=== PATIENT | female | born 1970 | race Caucasian/White ===

== ENCOUNTER 2024-11-14 14:46 | Outpatient (REF) | payer BC, SELFPAY ==
--- NOTE | ~2024-11-14 | XR_ITS ---
EXAMINATION: XR FOOT 3 OR MORE VIEWS LEFT HISTORY: left foot pain COMPARISON: There are no prior studies available for comparison. FINDINGS: Four views of the left foot are submitted. Osseous mineralization is normal. There is no fracture or dislocation. The joint spaces are preserved. The soft tissues are unremarkable. XR/XR foot LT min 3V IMPRESSION: Unremarkable examination of the left foot. Electronically signed by: Jorge A Milian MD 11/14/2024 03:37 PM EDT
--- OUTSIDE RECORDS SUMMARY | 2024-11-14 15:31 | XMS_ITS ---
Author Organization Jorge A Delaney III, MD Address [address] [place] [address] Care Team Providers Care Data Entry Email Processor Name Role Phone Jorge A Delaney [facility] [phone] Allergies Allergen (clinical drug ingredient) Drug/Non Drug Allergy documented on EMR Reaction Allergy Type Onset Date Status codeine Codeine Unknown Drug Allergy Active calcitonin Calcitonin Unknown Drug Allergy Activ e REASON FOR VISIT New Patient Medications Medication SIG (Take, Route, Frequency, Duration) Notes Start Date End Date Status Albuterol Sulfate HFA 108 (90 Base) MCG/ACT two puffs four times a day for wheezing Inhalation four times a day for 30 days Active EPINEPHrine 0.3 MG/0.3ML as directed Injection 01/2025 Active Estradiol 0.1 MG/GM USE 1 GRAM VAGINALLY DAILY BEFORE BED FOR 2 WEEKS THEN USE 3 TIMES A WEEK Vaginal Active Budesonide-Formoterol Fumarate 80-4.5 MCG/ACT two puffs twice a day Inhalation two puffs twice a day for 30 days 11/13/2024 11/08/2025 Active AeroChamber Holding Chamber - as directed 11/13/2024 Active Clobetasol Propionate 0.05 % APPLY A THIN FILM WEEKLY TO AFFECTED AREA WEEKLY. APPLY DAILY X 7-10 DAYS FOR A FLARE. External Active Doxycycline Hyclate 100 MG TAKE 1 TABLET BY MOUTH EVERY DAY Oral Active Exirsivf-Opmtzvpbx-Evjypte h 3.5-47951-8.1 APPLY INTO BOTH EYES AT BEDTIME Ophthalmic for 30 Days Active Social History Tobacco Use: Social History Observation Description Date Details (start date - stop date) Never Smoker NA - NA Tobacco Control (Standard) Question Answer Notes Tobacco use: Nonsmoker Additional Findings: Tobacco non-user Aggressive nonsmoker AUDIT-C (Standard) Question Answer Notes Did you have a drink containing alcohol in the p ast year? No Points 0 Interpretation Negative Problems Problem Type SNOMED Code ICD Code Onset Dates Problem Status W/U Status Risk Notes Problem 064302583 Asthma, unspecified asthma severity, unspecified whether complicated, unspecified whether persistent (J45.909) Active confirmed Problem 05221019 Sleep apnea, unspecified type (G47.30) Active confirmed Vital Signs Temperature 98.3 degrees Fahrenheit 11/14/19 25 Blood pressure systolic 138 mm Hg 11/14/19 25 Blood pressure diastolic 76 mm Hg 025 Heart Rate 65 /min 11/13/2024 Height 61.75 in 11/13/2024 Weight 149 lbs 11/13/2024 BMI 27.47 kg/m2 11/13/2024 Encounters Encounter Location Date Provider Diagnosis Jorge A Delaney III, MD [address] [place] [address] [place] [address] 11/13/2024 Jorge A Delaney Asthma, unspecified asthma severity, unspecified whether complicated, unspecified whether persistent J45.909 and Sleep apnea, unspecified type G47.30 Assessments Encounter Date Diagnosis (ICD Code) Assessment Notes Treat ment Notes Treatment Clinical Notes 11/13/2024 Asthma, unspecified asthma severity, unspecified whether complicated, unspecified whether persistent (ICD-10 - J45.909) 11/13/2024 Sleep apnea, unspecified type (ICD-10 - G47.30) Plan Of Treatment Medication Medication Name Sig Start Date Stop Date Notes Albuterol Sulfate HFA 108 (9 0 Base) MCG/ACT two puffs four times a day for wheezing Inhalation four times a day for 30 days EPINEPHrine 0.3 MG/0.3ML as directed Injection 11/13/2024 Estradiol 0.1 MG/GM USE 1 GRAM VAGINALLY DAILY BEFORE BED FOR 2 WEEKS THEN USE 3 TIMES A WEEK Vaginal Budesonide-Formoterol Fumarate 80-4.5 MCG/ACT two puffs twice a day Inhalation two puffs twice a day for 30 days 11/13/2024 11/08/2025 AeroChamber Holding Chamber - as directed 11/13/2024 Clobetasol Propionate 0.05 % APPLY A THI N FILM WEEKLY TO AFFECTED AREA WEEKLY. APPLY DAILY X 7-10 DAYS FOR A FLARE. External Doxycycline Hyclate 100 MG TAKE 1 TABLET BY MOUTH EVERY DAY Oral Pending Test Test Name Order Date PROFILE, FASTING (COMPREHENSIVE METABOLI C) 11/13/2024 CBC w DIFF 11/13/2024 Lipid Panel 11/13/2024 Next Appt Details Follow Up: 3 Weeks, Reason: TV review labs Provider Name:Jorg eA Delaney, 12/04/2024 11:15:00 AM, [address], [place], [address], Provider Name:Jorge A Mariane, 11/18/2025 10:30:00 AM, [address] [place] [address] [address], [place], [address], Progress Notes * MOSHER, CherylDOB:1970 (54 yo F)Acc No.[id number]:11/13/2024 Progress Notes Patient:?Cheryl MOSHER Provider:?Jorge A Delaney MD :1970???Age:54 Y???Sex:Female D ate:11/13/2024 Address:[address] [place], [place] [id number] Subjective: * Chief Complaints: * ???1. New Patient. * HPI: ???COVID-19 Screening:?Questions?Have you had any new onset fever, chills, cough, congestion, sore throat, shortness of breath, muscle aches??No ?left [facility]? ?neos pt 3 times, doxy for stye,? when it flares up, i advised her about the sun rash, asthma [facility] gi, giood, doctor of osteopathy is [facility] a month ago, last mammo last month, had colono, has cpap. * ROS:?General/Constitutional:?pain?only normal aches and pains.?Chills?denies.?Fatigue?admits.?Fever?denies.?ENT:?Decreased hearing?denies.?Respiratory:?Cough?denies.?Cardiovascular:?Chest pain with exertion?denies.?Dyspnea on exertion?denies.?Shortness of breath?denies.?Gastrointestinal:?Constipation?denies.?Decreased appetite?denies.?Diarrhea?denies.?Heartburn?denies.?Nausea?denies.?Rectal bleeding?denies.?Vomiting?denies.?Hematology:?bruising?denies.?petechiae?denies.?Swollen glands?none have been noted.?Genitourinary:?Frequent urination?denies.?Musculoskeletal:?Muscle aches?denies.?Painful joints?denies.?Sciatica?denies.?Weakness?denies.?Skin:?Itching?denies.?Rash?denies.?Skin lesion(s)?denies.?Neurologic:?Difficulty speaking?denies.?Dizziness?denies.?Headache?denies.?Low back pain?denies.?Psychiatric:?Depressed mood?denies.? * Medical History:?Stye upper left eyelid, Roseacea, Asthma, Frozen left shoulder, IBS, No uw2ptcggiczlju, Sleep apnea bmc. * Surgical History:?none . * Hospitalization/Major Diagno stic Procedure:?Denies Past Hospitalization. * Family History:?Father: dece ased, renal failure, rheumatoid arthritis, diabetes age 66, diagnosed with DM, Cancer.?Mother: alive, edema, , Lupus, congestive heart failure, migraine, skin cancer , hypothyroidism, diagnosed with HTN, DM in 75.?Siblings: alive.?Maternal Grand Father: diagnosed with DM.?2 sister(s) . .? Youngest sister have thyroid cancer. Cousin and aunt from mother side have thyroid cancer. * Social History:?Tobacco Use:?Tobacco Control (Standard)?Tobacco use:?Nonsmoker ?Additional Findings: Tobacco non-user?Aggressive nonsmoker ???Drugs/Alcohol:?Drugs?Have you used drugs other than those for medical reasons in the past 12 months??No ???Drug/Alcohol:?AUDIT-C (Standard)?Did you have a drink containing alcohol in the past year??No ?Points?0 ?Interpretation?Negative * Medications:?Taking Doxycycl ine Hyclate 100 MG Tablet TAKE 1 TABLET BY MOUTH EVERY DAY Oral , Taking Clobetasol Propionate 0.05 % Ointment APPLY A THIN FILM WEEKLY TO AFFECTED AREA WEEKLY. APPLY DAILY X 7-10 DAYS FOR A FLARE. External , Taking Estradiol 0.1 MG/GM Cream USE 1 GRAM VAGINALLY DAILY BEFORE BED FOR 2 WEEKS THEN USE 3 TIMES A WEEK Vaginal , Taking Albuterol Sulfate HFA 108 (90 Base) MCG/ACT Aerosol Solution INHALE 2 PUFFS 4 TIMES A DAY NEEDED FOR WHEEZING/SHORTNESS OF BREATH Inhalation , Taking EPINEPHrine 0.3 MG/0.3ML Solution Auto-injector as directed Injection , Taking Budesonide-Formoterol Fumarate 80-4.5 MCG/ACT Aerosol as directed Inhalation , Taking AeroChamber Holding Chamber - Device as directed , Taking Lhqdcwrv-Hyreavuqv-Thfwcpzv 3.5-75405-0.1 Ointment APPLY INTO BOTH EYES AT BEDTIME Ophthalmic , Medication List reviewed and reconciled with the patient * Allergies:?Codeine, Calciton in. Objective: * Vitals:?Ht: 61.75, Wt: 149, BMI:27.47, BP: 138/76, HR: 65, Temp: 98.3, Ht-cm: 156.85, Wt-k.59. * Examination: ???General Examination: ?GENERAL APPEARANCE:?pleasant, well nourished, well developed, in no acute distress, calm and relaxed.?HEAD:?atraumatic, normocephalic.?EYES:?eomi, perrla, anicteric, conjugate.?EARS:?normal.?NOSE:?septum intact.?ORAL CAVITY:?normal, unremarkable.?NECK/THYROID:?no jugular venous distention, no carotid bruit, thyroid normal.?LYMPH NODES:?no enlarged lymph nodes,spleen normal.?SKIN:?no suspicious lesions, anicteric.?HEART:?no clicks, gallops, murmurs, or rubs, regular rhythm, S1, S2 normal, no s3, or vascular bruits.?LUNGS:?clear to auscultation .?BREASTS:??no masses palpable bilaterally.?ABDOMEN:?bowel sounds normal, no ascites, no organomegaly, no mass.?RECTAL EXAM:?not examined.?MUSCULOSKELETAL:?extremities unremarkable, no clubbing, cyanosis or edema.?PERIPHERAL PULSES:?normal.?NEUROLOGIC:?alert and oriented, cranial nerves 2-12 grossly intact, deep tendon reflexes 2+ symmetrical, motor strength normal upper and lower extremities, sensory exam intact.?PSYCH:?alert, oriented.? Assessment: * Assessment: 1.?Asthma, unspecified asthm a severity, unspecified whether complicated, unspecified whether persistent - J45.909 (Primary)???2.?Sleep apnea, unspecified type - G47.30??? Plan: * Treatment: 2.?Sleep apnea, unspecified type?LAB: PROFILE, FASTING (COMPREHENSIVE METABOLIC) ?LAB: CBC w DIFF ?LAB: Lipid Panel 3.?Others? Continue Doxycycline Hyclate Tablet, 100 MG, TAKE 1 TABLET BY MOUTH EVERY DAY, Oral;?Continue Clobetasol Propionate Ointment, 0.05 %, APPLY A THIN FILM WEEKLY TO AFFECTED AREA WEEKLY. APPLY DAILY X 7-10 DAYS FOR A FLARE., External;?Continue Estradiol Cream, 0.1 MG/GM, USE 1 GRAM VAGINALLY DAILY BEFORE BED FOR 2 WEEKS THEN USE 3 TIMES A WEEK, Vaginal;?Continue Albuterol Sulfate HFA Aerosol Solution, 108 (90 Base) MCG/ACT, two puffs four times a day for wheezing, Inhalation, four times a day, 30 days, 1 Each, Refills 11;?Continue EPINEPHrine Solution Auto-injector, 0.3 MG/0.3ML, as directed, Injection;?Continue Budesonide-Formoterol Fumarate Aerosol, 80-4.5 MCG/ACT, two puffs twice a day, Inhalation, two puffs twice a day, 30 days, 1, Refills 11;?Continue AeroChamber Holding Chamber Device, -, as directed.?? * Preventive Medicine:? ??Counseling:?Care goal follow-up plan:?Counseling for abnormal BMI given?Yes ?Above Normal BMI Follow-up?Dietary management education, guidance, and counseling, Dietary needs education, Exercise promotion: strength training, Exercise promotion: stretching, Feeding regime, Giving encouragement to exercise, Lifestyle education regarding diet, Nutrition / feeding management, Nutrition therapy, Prescribed activity/exercise education, Prescribed diet education, Prescribed dietary intake, Special diet education, Weight monitoring , Intervention, Order not done: Medical or Other reason not done * Follow Up:?3 Weeks (Reason: TV review labs) * Images: * The named appointment provid er may or may not be the originator of this progress note, and it is not deemed complete until electronically signed by the appointment provider. Sign off status: Pending * Provider:?Jorge A Delaney MD Date:?01/2025 Generated for Haydee hoyos/Mariela/Rafsmitting on:?11/14/2024 03:31 PM EDT History and Physical Notes * HPI (History of Present Illness) Category Sub-Category Detail Notes COVID-19 Screening Questions Have you had any new onset fever, chills, cough, congestion, sore throat, shortness of breath, muscle aches?: No Examination Category Sub-Category Detail Notes General Examination GENERAL APPEARANCE: pleasant , well nourished, well developed, in no acute distress, calm and relaxed HEAD: atraumatic, normocep halic EYES: eomi, perrla, anicte cat, conjugate EARS: normal NOSE: septum intact NECK/THYROID: no jugular venous di stention, no carotid bruit, thyroid normal HEART: no clicks, gallops, murmurs, or rubs, regular rhythm, S1, S2 normal, no s3, or vascular bruits LUNGS: clear to auscultatio n ABDOMEN: bowel sounds normal, no ascites, no organomegaly, no mass NEUROLOGIC: alert and oriented, cranial nerves 2-12 grossly intact, deep tendon reflexes 2+ symmetrical, motor strength normal upper and lower extremities, sensory exam intact SKIN: no suspicious lesion s, anicteric PERIPHERAL PULSES: normal BREASTS: no masses palpable b ilaterally MUSCULOSKELETAL: extremities unremark able, no clubbing, cyanosis or edema LYMPH NODES: no enlarged lymph no ira,spleen normal RECTAL EXAM: not examined PSYCH: alert, oriented ORAL CAVITY: normal, unremarkable
--- OUTSIDE RECORDS SUMMARY | 2024-11-14 15:31 | XMS_ITS ---
Author Organization Jorge A Delaney III, MD Address [address] [place] [address] Care Team Providers Care Oncology Rep Name Role Phone Jorge A Delaney [facility] [phone] Allergies Allergen (clinical drug ingredient) Drug/Non Drug Allergy documented on EMR Reaction Allergy Type Onset Date Status codeine Codeine Unknown Drug Allergy Active calcitonin Calcitonin Unknown Drug Allergy Activ e REASON FOR VISIT Left foot pain Medications Medication SIG (Take, Route, Frequency, Duration) Notes Start Date End Date Status Budesonide-Formoterol Fumarate 80-4.5 MCG/ACT two puffs twice a day Inhalation two puffs twice a day 11/13/2024 Active AeroChamber Holding Chamber - as directed 11/13/2024 Active Albuterol Sulfate HFA 108 (90 Base) MCG/ACT two puffs four times a day for wheezing Inhalation four times a day Active EPINEPHrine 0.3 MG/0.3ML as directed Injection 01/2025 Active Luobyspp-Qwpztvnrd-Ohzqeobh 3.5-62883-4.1 APPLY INTO BOTH EYES AT BEDTIME Ophthalmic Active Clobetasol Propionate 0.05 % APPLY A THIN FILM WEEKLY TO AFFECTED AREA WEEKLY. APPLY DAILY X 7-10 DAYS FOR A FLARE. External Active Estradiol 0.1 MG/GM USE 1 GRAM VAGINALLY DAILY BEFORE BED FOR 2 WEEKS THEN USE 3 TIMES A WEEK Vaginal Active Doxycycline Hyclate 100 MG TAKE 1 TABLET BY MOUTH EVERY DAY Oral Active Social History Tobacco Use: Social History Observation Description Date Details (start date - stop date) Never Smoker NA - NA Tobacco Control (Standard) Question Answer Notes Tobacco use: Nonsmoker Additional Findings: Tobacco non-user Aggressive nonsmoker Problems Problem Type SNOMED Code ICD Code Onset Dates Problem Status W/U Status Risk Notes Problem Left foot pain (M79.672) Active confirmed For several months she has had pain in [place] at work or prolonged walking. It is at the point where she would like and evaluation. On x-ray has been ordered. Followed by a telephone visit to discuss the results. She will likely need podiatry. Problem 029126062 Overweight (E66.3) Active confirmed Her body mass index is 27. We made a plan to lose weight at a rate of one half of a pound per week. Vital Signs Height 61.75 in 11/14/2024 Encounters Encounter Location Date Provider Diagnosis Jorge A Delaney III, MD [address] [place] [address] [place] [address] 11/14/2024 Jorge A Delaney Left foot pain M79.672 and Overweight E66.3 Assessments Encounter Date Diagnosis (ICD Code) Assessment Notes Treatment Notes Treatment Clinical Notes 11/14/2024 Left foot pain (ICD-10 - M79.672) For several months she has had pain in [place] at work or prolonged walking. It is at the point where she would like and evaluation. On x-ray has been ordered. Followed by a telephone visit to discuss the results. She will likely need podiatry. 11/14/2024 Overweight (ICD-10 - E66.3) Her body mass index is 27. We made a plan to lose weight at a rate of one half of a pound per week. Plan Of Treatment Medication Medication Name Sig Start Date Stop Date Notes Budesonide-Formoterol Fumara te 80-4.5 MCG/ACT two puffs twice a day Inhalation two puffs twice a day 11/13/2024 AeroChamber Holding Chamber - as directed 11/13/2024 Albuterol Sulfate HFA 108 (9 0 Base) MCG/ACT two puffs four times a day for wheezing Inhalation four times a day EPINEPHrine 0.3 MG/0.3ML as directed Injection 11/13/2024 Ebtcvluh-Ogwcmtvtm-Bayaegxl 3.5-91958-8.1 APPLY INTO BOTH EYES AT BEDTIME Ophthalmic Clobetasol Propionate 0.05 % APPLY A THI N FILM WEEKLY TO AFFECTED AREA WEEKLY. APPLY DAILY X 7-10 DAYS FOR A FLARE. External Estradiol 0.1 MG/GM USE 1 GRAM VAGINALLY DAILY BEFORE BED FOR 2 WEEKS THEN USE 3 TIMES A WEEK Vaginal Doxycycline Hyclate 100 MG TAKE 1 TABLET BY MOUTH EVERY DAY Oral Pending Test Test Name Order Date XR foot LT min 3V 11/14/2024 Next Appt Details Follow Up: SCHEDULED, Fariba son: TELEHEALTH Provider Name:Jorge A Thurstonrne, 12/04/2024 11:15:00 AM, [address] [place] [address] [address], [place], [address], Provider Name:Jorge A Rhett, 11/18/2025 10:30:00 AM, [address] [place] [address] [address], [place], [address], Progress Notes * Cheryl MOSHERDOB:1970 (54 yo F)Acc No.[id number]:11/14/2024 Patient:?Cheryl MOSHER Provider:?Jorge A Delaney MD :1970???Age:54 Y???Sex:Female D ate:11/14/2024 Address:[address] [place], [place] [id number] Subjective: * Chief Complaints: * ???Left foot pain * HPI: ???v:?She was seen yesterday for the first time. More information is available.? She says that she has been having pain in her left fourth toe for several months with walking, and it is worsening. I have ordered an x-ray.? We discussed the visit to podiatry.? When the x-ray is read she iis currently call me and we will decide. ???:?Telehealth?Location of provider rendering services:?{...} [address] [place] [address] ?Location of patient:?address listed in demographics for today's visit ?Patient identification confirmed using:?Name, ?Telehealth method:?Telephone only. Patient not visible to care provider. ?Consent:?Patient verbally consented to treatment, Patient verbally consented to billing insurance company, Patient informed of any privacy concerns related to method of visit ?Total time spent with patient (mins)?15 * ROS:?General/Constitutional:?pain?Left foot with weight bearing.?Chills?denies.?Fatigue?admits.?Fever?denies.?ENT:?Decreased hearing?denies.?Respiratory:?Cough?denies.?Cardiovascular:?Chest pain with exertion?denies.?Dyspnea on exertion?denies.?Shortness of breath?denies.?Gastrointestinal:?Constipation?denies.?Decreased appetite?denies.?Diarrhea?denies.?Heartburn?denies.?Nausea?denies.?Rectal bleeding?denies.?Vomiting?denies.?Hematology:?bruising?denies.?petechiae?denies.?Swollen glands?none have been noted.?Genitourinary:?Frequent urination?at night.?Musculoskeletal:?Muscle aches?denies.?Painful joints?denies.?Sciatica?denies.?Weakness?denies.?Skin:?Itching?denies.?Rash?denies.?Skin lesion(s)?denies.?Neurologic:?Difficulty speaking?denies.?Dizziness?denies.?Headache?denies.?Low back pain?denies.?Psychiatric:?Depressed mood?denies.? * Medical History:? * Surgical History:?none * Hospitalization/Major Diagno stic Procedure:? * Family History:?Father: dece ased, renal failure, [...] (Standard)?Tobacco use:?Nonsmoker ?Additional Findings: Tobacco non-user?Aggressive nonsmoker * Medications:?TakingDoxycycli ne Hyclate 100 MG Tablet TAKE 1 TABLET BY MOUTH EVERY DAY Oral Clobetasol Propionate 0.05 % Ointment APPLY A THIN FILM WEEKLY TO AFFECTED AREA WEEKLY. APPLY DAILY X 7-10 DAYS FOR A FLARE. External Estradiol 0.1 MG/GM Cream USE 1 GRAM VAGINALLY DAILY BEFORE BED FOR 2 WEEKS THEN USE 3 TIMES A WEEK Vaginal Albuterol Sulfate HFA 108 (90 Base) MCG/ACT Aerosol Solution two puffs four times a day for wheezing Inhalation four times a day EPINEPHrine 0.3 MG/0.3ML Solution Auto- injector as directed Injection Budesonide-Formoterol Fumarate 80-4.5 MCG/ACT Aerosol two puffs twice a day Inhalation two puffs twice a day , stop date 11/08/2025[facility] Holding Chamber - Device as directed Aequfnpe-Dzsbauxfe-Lfdtbowf 3.5-47149-3.1 Ointment APPLY INTO BOTH EYES AT BEDTIME Ophthalmic Taking Doxycycline Hyclate 100 MG Tablet TAKE 1 TABLET BY MOUTH EVERY DAY Oral Taking Clobetasol Propionate 0.05 % Ointment APPLY A THIN FILM WEEKLY TO AFFECTED AREA WEEKLY. APPLY DAILY X 7-10 DAYS FOR A FLARE. External Taking Estradiol 0.1 MG/GM Cream USE 1 GRAM VAGINALLY DAILY BEFORE BED FOR 2 WEEKS THEN USE 3 TIMES A WEEK Vaginal Taking Albuterol Sulfate HFA 108 (90 Base) MCG/ACT Aerosol Solution two puffs four times a day for wheezing Inhalation four times a day Taking EPINEPHrine 0.3 MG/0.3ML Solution Auto- injector as directed Injection Taking Budesonide-Formoterol Fumarate 80-4.5 MCG/ACT Aerosol two puffs twice a day Inhalation two puffs twice a day , stop date 11/08/2025Taking AeroChamber Holding Chamber - Device as directed Taking Cgqocntw-Udkufbqoe-Jerszfij 3.5-40823-4.1 Ointment APPLY INTO BOTH EYES AT BEDTIME Ophthalmic * Allergies:?CodeineCalcitonin Objective: * Vitals:?Ht: 61.75, Ht-cm: 15 6.85. Assessment: * Assessment: 1.?Left foot pain - M79.672 (Primary)???Notes :For several months she has had pain in [place] at work or prolonged walking.? It is at the point where she would like and evaluation.? On x-ray has been ordered.? Followed by a telephone visit to discuss the results.? She will likely need podiatry.???2.?Overweight - E66.3???Notes :Her body mass index is 27.? We made a plan to lose weight at a rate of one half of a pound per week.??? Plan: * Treatment: * Procedure Codes:?22005 SYNCH AUDIO-ONLY EST SF 10 * Preventive Medicine:? ??Counseling:?Care goal follow-up plan:?Counseling for abnormal BMI given?Yes ?Above Normal BMI Follow-up?Dietary management education, guidance, and counseling * Follow Up:? SCHEDULED (Fariba son: [employer]) * Images: * Sign off status: Completed true * Provider:?Jorge A Delaney MD Date:?02/2025 Generated for Haydee hoyos/Mariela/Gabriel on:?11/14/2024 03:31 PM EDT History and Physical Notes * HPI (History of Present Illness) Category Sub-Category Detail Notes Telehealth Location of [facility] rendering services:: {...} [address] [facility] [address] Location of patient:: address listed in demographics for today's visit Patient identification confirmed using:: Name, Telehealth method:: Telephone only. Terri ent not visible to care provider. Consent:: Patient verbally c onsented to treatment, Patient verbally consented to billing insurance company, Patient informed of any privacy concerns related to method of visit Total time spent with patient (mins): 15
--- OUTSIDE RECORDS SUMMARY | 2024-11-14 15:31 | XMS_ITS | Patient Health Record ---
Author Organization Jorge A Delaney III, MD Address [address] [place] [address] Care Team Providers Care [employer] Name Role Phone Jorge A Delaney Unavailable [phone] Allergies Allergen (clinical drug ingredient) Drug/Non Drug Allergy documented on EMR Reaction Allergy Type Onset Date Status codeine Codeine Unknown Drug Allergy Active calcitonin Calcitonin Unknown Drug Allergy Activ e Reason For Referral No Information Medications Medication SIG (Take, Route, Frequency, Duration) [...] 0.3 MG/0.3ML as directed Injection 01/2025 Active Clobetasol Propionate 0.05 % APPLY A THIN FILM WEEKLY TO AFFECTED AREA WEEKLY. APPLY DAILY X 7-10 DAYS FOR A FLARE. External Active Estradiol 0.1 MG/GM USE 1 GRAM VAGINALLY DAILY BEFORE BED FOR 2 WEEKS THEN USE 3 TIMES A WEEK Vaginal Active Doxycycline Hyclate 100 MG TAKE 1 TABLET BY MOUTH EVERY DAY Oral Active Snfcylwo-Ynkljdvqf-Nehcehoi [id number] APPLY INTO BOTH EYES AT BEDTIME Ophthalmic Active Social History Tobacco Use: Social History [...] Problem Status W/U Status Risk Notes Problem 548637224 Overweight (E66.3) Active confirmed Her body mass index is 27. We made a plan to lose weight at a rate of one half of a pound per week. Problem Left foot pain (M79.672) Active confirmed For several months she has had pain in her left fourth [place] with prolonged standing at work or prolonged walking. It is at the point where she would like and evaluation. On x-ray has been ordered. Followed by a telephone visit to discuss the results. She will likely need podiatry. Problem [id number] Sleep apnea, unspecified type (G47.30) Active confirmed Problem 195540050 Asthma, unspecified asthma severity, unspecified whether complicated, unspecified whether persistent (J45.909) Active confirmed Vital Signs Heart Rate 65 /min 11/13/2024 Temperature 98.3 degrees Fahrenheit 11/13/2024 Blood pressure diastolic 76 mm Hg 11/13/2024 Height 61.75 in 11/14/2024 Blood pressure systolic 138 mm Hg 11/13/2024 Weight 149 lbs 11/13/2024 BMI 27.47 kg/m2 11/13/2024 Encounters Encounter Location Date Provider Diagnosis Jorge A Delaney III, MD [address] [place] [address] [address] [place] [id number] 11/13/2024 Jorge A Delaney Asthma, unspecified asthma severity, unspecified whether complicated, unspecified whether persistent J45.909 and Sleep apnea, unspecified type G47.30 Jorge A Delaney III, MD [address] [place] [address] [place] [id number] 11/14/2024 Jorge A Dleaney Left foot pain M79.6 71 and Overweight E66.3 Assessments Encounter Date Diagnosis (ICD Code) Assessment Notes Treatment Notes Treatment Clinical Notes 11/13/2024 Sleep apnea, unspecified type (ICD-10 - G47.30) 11/13/2024 Asthma, unspecified asthma severity, unspecified whether complicated, unspecified whether persistent (ICD-10 - J45.909) 11/14/2024 Overweight (ICD-10 - E66.3) Her body mass index is 27. We made a plan to lose weight at a rate of one half of a pound per week. 11/14/2024 Left foot pain (ICD-10 - M79.672) For several months she has had pain in her left fourth toe [place] with prolonged standing at work or prolonged walking. It is at the point where she would like and evaluation. On x-ray has been ordered. Followed by a telephone visit to discuss the results. She will likely need podiatry. Plan Of Treatment Pending Test Test Name Order Date PROFILE, FASTING (COMPREHENSIVE METABOLI C) 11/13/2024 CBC w DIFF 11/13/2024 Lipid Panel 11/13/2024 XR foot LT min 3V 11/14/2024 Next Appt Details Provider Name:Jorge A Thurstonrne, 12/04/2024 11:15:00 AM, [address] [place] [address] [address], [place], [phone], Provider Name:Jorge A Rhett, 11/18/2025 10:30:00 AM, [address] [place] [address] [address], [place], [address], Insurance Providers Payer Name Payer Address Payer Phone Subscriber Number Group Number Insured Name Patient Relationship to Insured Coverage Start Date Coverage End Date [facility] [address] [place] [address] [id number] Cheryl Mosher Self - patient is the insured Medical (General) History Medical History History ICD Code stye upper left eyelid roseacea asthma frozen left shoulder IBS no [id number] sleep apnea [facility] Surgical History Surgery Date(Month/Year) none
== END 2024-11-14 14:47 | disposition home or self-care (01) ==
LOC: HO.XRAY 14:46
PROVIDERS: PCP Internal Medicine Medical Oncology; Visit Provider Internal Medicine Medical Oncology
DX: M79.672 Pain in left foot (principal)
CPT/HCPCS: 73630

== ENCOUNTER → 2024-11-14 15:10 | Outpatient (BNV) | payer BC, SELFPAY | PROVIDERS: PCP Internal Medicine Medical Oncology; Visit Provider Radiology Diagnostic Radiology | DX: M79.672 Pain in left foot (principal) | CPT/HCPCS: 73630 ==